=== PATIENT | female | born 1970 | race Caucasian/White ===

== ENCOUNTER 2021-02-18 12:56 | Outpatient (REF) | payer OTHER, SELFPAY ==
[2021-02-18 15:53] LABS: Binax Now Covid-19 Ag Negative (Negative)
[2021-02-18 15:54] LABS: Binax Internal Control QC Valid
== END 2021-02-18 12:57 | disposition home or self-care (01) ==
LOC: HO.LAB 12:56
PROVIDERS: Visit Provider Internal Medicine
DX: Z20.822 Contact with and (suspected) exposure to COVID-19 (principal)
CPT/HCPCS: 36415; C9803

== ENCOUNTER 2021-10-12 16:14 | Outpatient (REF) | payer OTHER, SELFPAY ==
[2021-10-13 07:23] LABS: CT PCR NOT DETECTED (Not Detect.); NG PCR NOT DETECTED (Not Detect.)
== END 2021-10-12 16:15 | disposition home or self-care (01) ==
LOC: HO.MANLDS 16:14
PROVIDERS: Visit Provider Physician Assistant
DX: Z11.3 Encounter for screening for infections with a predominantly sexual mode of transmission (principal)
CPT/HCPCS: 87491; 87591

== ENCOUNTER 2021-10-13 11:04 | Outpatient (REF) | payer OTHER, SELFPAY ==
[2021-10-13 12:28] LABS: Alanine Aminotransferase 13 U/L (0-31); Albumin Level 4.1 g/dL (3.5-5.0); Alkaline Phosphatase 61 U/L (39-117); Anion Gap 14 (12-20); Aspartate Amino Transferase 16 U/L (5-31); Bilirubin Total 0.2 mg/dL (0.0-1.0); Blood Urea Nitrogen 11 mg/dL (9-16); Carbon Dioxide 23 mmol/L (22-29); Chloride 105 mmol/L (96-108); Estimated Glomerular Filt Rate > 60; Glucose Random 65 mg/dL (60-115); Iron 15 mcg/dL (30-160); Percent Iron Saturation 3 % (15-50); Potassium 4.4 mmol/L (3.3-5.1); Sodium 138 mmol/L (135-145); Total Iron Binding Capacity 496 mcg/dL (228-428); Unsaturated Iron Binding 481 ug/dL
[2021-10-13 12:48] LABS: Ferritin 6 ng/mL (10-250)
[2021-10-13 12:53] LABS: Estimated Average Glucose 94 mg/dL; Hemoglobin A1c % 4.9 %
[2021-10-13 13:24] LABS: Syphilis Screen Nonreactive (Nonreactive)
[2021-10-14 05:23] LABS: HBsAGNum1 0.21 S/CO (0.00-0.99); HIV AB/AG Nonreactive (Nonreactive); HIV Num 1 0.07 S/CO (0.00-0.99); Hepatitis B Surface Antigen Negative (Negative); ~HepC Num1 0.12 S/CO (0.00-0.79); ~Hepatitis C Antibody Nonreactive (Nonreactive)
== END 2021-10-13 11:05 | disposition home or self-care (01) ==
LOC: HO.LAB 11:04
PROVIDERS: PCP Internal Medicine; Visit Provider Physician Assistant
DX: Z11.3 Encounter for screening for infections with a predominantly sexual mode of transmission (principal); Z11.4 Encounter for screening for human immunodeficiency virus [HIV]; R63.1 Polydipsia; D50.0 Iron deficiency anemia secondary to blood loss (chronic)
CPT/HCPCS: 80053; 82728; 83036; 83540; 86780; 86803; 87340; 87389

== ENCOUNTER 2022-05-04 10:41 | Outpatient (REF) | payer BC, SELFPAY | END 2022-05-04 10:42 | disposition home or self-care (01) | LOC: HO.10HDLNP 10:41 | PROVIDERS: Visit Provider Otolaryngology | DX: B37.0 Candidal stomatitis (principal); R53.83 Other fatigue | CPT/HCPCS: 87102 ==

== ENCOUNTER 2022-06-23 14:00 | Outpatient (RCR) | payer BC, SELFPAY ==
[2022-05-23 10:17] VITALS: BP 140/85
== END 2022-07-28 08:59 | disposition home or self-care (01) ==
LOC: HO.PT 14:00
PROVIDERS: PCP Internal Medicine; Visit Provider Otolaryngology
DX: R42 Dizziness and giddiness (principal)
CPT/HCPCS: 97112; 97140; 97161; 97530

== ENCOUNTER 2023-12-07 10:16 | Outpatient (REF) | payer BC, SELFPAY | END 2023-12-07 10:17 | disposition home or self-care (01) | LOC: HO.HOSX 10:16 | PROVIDERS: Visit Provider Orthopaedic Surgery | DX: M25.511 Pain in right shoulder (principal) | CPT/HCPCS: 73030 ==

== ENCOUNTER 2023-12-07 14:59 | Outpatient (AMB) | payer BC, SELFPAY ==
--- NOTE | 2023-12-07 15:13 | MHC.OFFVIS ---
Vital Signs 12/07/23 15:15 Height 5 ft 5 in Weight 140 lb BMI 23.3 Intake Visit Reasons: Right shoulder pain and weakness Intake Note: Kamila is a 53 year old female who presents with complaints of progressively worsening right shoulder pain and weakness. The patient describes her pain as sharp and severe in nature. Most of the pain is along the lateral aspect of her right shoulder. She did injure her right shoulder when she fell while snowboarding several years ago. Since that time she has had difficulty lifting her right hand above shoulder height. She has done physical therapy exercises which aggravated her pain. She has also tried Tylenol and anti-inflammatory medicines which gave her minimal relief. She denies any numbness or tingling in either of her upper extremities. She has failed the last 6 weeks of conservative treatment consisting of a home exercise program, topical creams, Tylenol and anti-inflammatory medicines. Allergies No Known Allergies Allergy (Verified 12/07/23 15:17) Physical Exam Vital Signs: BMI result Body Mass Index 23.3 Const Other: Well-nourished well-developed very friendly female awake alert and oriented x3 in no acute distress Extrem Other: Bilateral upper extremity examination shows good capillary refill, no skin lesions noted, normal sensation light touch Right shoulder examination shows decreased range of motion when compared to her left shoulder, 4+ out of 5 strength with supraspinatus testing, positive impingement signs, tenderness over her acromioclavicular joint, no instability Results Reviewed Results Reviewed: X-rays of the patient's right shoulder show moderate to severe acromioclavicular joint narrowing, a type 2 acromion, no acute bony abnormalities Assessment & Plan Assessment & Plan (1) Right shoulder pain: Code(s): M25.511 - Pain in right shoulder Category: Medical Plan Ms. Velazquez presents with progressively worsening right shoulder pain and weakness due to impingement syndrome and possible rotator cuff tearing. I will send the patient for an MRI of her right shoulder for further evaluation. I will see her back once the MRI is completed to discuss the findings and treatment options. She will continue with her [id number] exercises in the meantime to prevent stiffness. Feel free to call me at any time should questions regarding her orthopedic management arise. Thank you very much for asking me to see this very friendly patient. I spent 22 minutes in reviewing the patient's records and imaging studies, seeing the patient and documenting in the medical record. Orders: Orders XR shoulder RT min 2V 12/07/23 M25.511 - Pain in right shoulder MR shoulder RT wo con 12/07/23 M25.511 - Pain in right shoulder Coding Level of Care Code New Pt Level 3 (69034) Complex EM visit Add On G2211 Diagnoses Right shoulder pain M25.511
[2023-12-07 15:15] VITALS: BMI 23.3
== END 2023-12-07 15:50 | disposition home or self-care (01) ==
PROVIDERS: PCP Internal Medicine; Visit Provider Orthopaedic Surgery
DX: M75.41 Impingement syndrome of right shoulder (principal); M25.511 Pain in right shoulder
CPT/HCPCS: 99203

== ENCOUNTER → 2024-02-27 17:52 | Outpatient (BNV) | payer BC, SELFPAY | PROVIDERS: PCP Internal Medicine; Visit Provider Radiology Diagnostic Radiology | DX: M19.011 Primary osteoarthritis, right shoulder (principal); M75.21 Bicipital tendinitis, right shoulder | CPT/HCPCS: 73221 ==

== ENCOUNTER 2024-02-27 17:53 | Outpatient (REF) | payer BC, SELFPAY ==
--- NOTE | ~2024-02-27 | MR_ITS ---
CLINICAL HISTORY: M25.511 - Pain in right shoulder MR right shoulder without gadolinium Comparison: Radiographs right shoulder 12/03/2019 Findings: The patient's shoulder is mildly rotated within the scanner No acute fractures. No pathologic bone lesions. There are significant degenerative changes of the acromioclavicular joint with osteophyte formation, marrow edema within the distal acromion and clavicle small subchondral geodes. There are likely small erosions and hypertrophy.. There is mild inferior downsloping acromion. There is mild elevation of the humeral head in relationship to the acromion and glenoid. There is focal increased T2 signal within the supraspinatus tendon . There is increased T2 signal within the infraspinatus tendon. There is small amount of subacromial fluid. There is subscapularis tendon and teres minor tendons are intact. There is increased T2 signal fluid within the bicipital tendon sheath. The bicipital tendon is intact. IMPRESSION: Significant degenerative changes of the acromioclavicular joint, mild inferior downsloping acromion Mild elevation of the humeral head relationship to the glenoid and acromion, superior inferior tear supraspinatus tendon without retraction Tendinosis possible partial tear of the infraspinatus tendon Bicipital tenosynovitis This document has been electronically signed by: Shiv Steve MD on 02/29/2024 08:18:05
== END 2024-02-27 17:54 | disposition home or self-care (01) ==
LOC: HO.MRI 17:53
PROVIDERS: PCP Internal Medicine; Visit Provider Orthopaedic Surgery
DX: M25.511 Pain in right shoulder (principal)
CPT/HCPCS: 73221

== ENCOUNTER 2024-03-05 15:20 | Outpatient (AMB) | payer BC, SELFPAY ==
--- NOTE | 2024-03-05 15:21 | MHC.OFFVIS ---
Vital Signs 03/05/24 15:28 Height 5 ft 5 in Weight 140 lb BMI 23.3 Intake Visit Reasons: OV- Right shoulder MRI review Intake Note: Kamila is a 53 year old female who presents today for a right shoulder MRI review. The patient states that her symptoms have gotten somewhat better since her last visit. She continues to modify the way she exercises. She reports intermittent discomfort along the lateral aspect of her right shoulder. She reports minimal weakness. Allergies No Known Allergies Allergy (Verified 03/05/24 15:23) Physical Exam Vital Signs: BMI result Body Mass Index 23.3 Const Other: Well-nourished well-developed very friendly female awake alert and oriented x3 in no acute distress Extrem Other: Right shoulder examination shows full range motion when compared to her left shoulder, 4/5 strength with supraspinatus testing, positive impingement, tenderness over her acromioclavicular joint, no instability Results Reviewed Results Reviewed: MRI of the patient's right shoulder show severe acromioclavicular joint narrowing, a type 2 acromion, signal change within the supraspinatus tendon due to a partial-thickness tear versus a small full-thickness tear Assessment & Plan Assessment & Plan (1) Right shoulder pain: Code(s): M25.511 - Pain in right shoulder Category: Medical Plan Ms. Velazquez presents with intermittent right shoulder pain due to impingement syndrome, acromioclavicular joint arthritis and a partial-thickness rotator cuff tear versus a small full-thickness tear. I had a lengthy discussion with the patient regarding the treatment options. At this point the patient's symptoms are tolerable to her. She will continue with her activity modifications. She will contact me prior to her follow-up appointment in 6 months should her symptoms worsen in any way. Feel free to call me at any time should questions regarding her orthopedic management arise. Enter time Coding Level of Care Code Est Pt Level 3 (26671) Complex EM visit Add On G2211 Diagnoses Right shoulder pain M25.511
[2024-03-05 15:28] VITALS: BMI 23.3
== END 2024-03-05 16:02 | disposition home or self-care (01) ==
PROVIDERS: PCP Internal Medicine; Visit Provider Orthopaedic Surgery
DX: M25.511 Pain in right shoulder (principal)
CPT/HCPCS: 99213